=== PATIENT | male | born 1995 | race Two or more races ===

== ENCOUNTER 2025-02-19 21:01 | Emergency (ER) | payer MEDICAID, SELFPAY ==
[2025-02-19 21:08] VITALS: BP 132/81; PULSE 96; RESP 18; TEMP 36.7; O2SAT 97
--- NOTE | 2025-02-19 21:10 | PC.NURSE ---
NOT A STROKE ALERT PER DR. MENDES.
--- NOTE | 2025-02-19 21:11 | XR_ITS ---
Examination: CT brain head without contrast. 2-D sagittal coronal reconstructions Date and time of exam:February 19, 2025, 2122 hrs. Indications: Altered mental status numbness in the face and arms beginning 15 minutes ago CTDI: vol (mGy):40.5 DLP: (mGycm):987 Technique: Multiple CT axial sections of the brain have been obtained, 5 mm slice thickness. Contrast has not been administered. 2-D sagittal, coronal reconstructions have been obtained Low dose protocols were performed. One or more of the following dose reduction techniques were used; automated exposure control, adjustment of the mA and/or KV according to patient size, use of iterative reconstruction technique. Findings: No significant ventricular enlargement. Intra-axial or extra-axial hemorrhage density is not seen. Cerebellar tonsils appear to project 5 mm below the foramen magnum No mass effect or midline shift Cerebellar tonsils project Fourth ventricle is midline. Cranial vault intact. Impression: Negative for acute hemorrhage, or midline shift. Suspicious for Arnold-Chiari malformation type I Recommend elective brain MRI follow-up pre and postcontrast
--- NOTE | 2025-02-19 21:13 | PD.EDADULT ---
ED General RME/HPI General Chief complaint: General Adult/Misc Complain Stated complaint: NUMBNESS TO FACES, [place]. ARMS, AND STOMACH X15 MIN Time Seen by Provider: 02/19/25 21:10 Arrival date/time: 02/19/25 21:01 RME / HPI RME / HPI narrative: DR. MENDES MAIN ED EVALUATION: 29 y/o male presents to ED c/o of numbness radiating from the abdomen, left side chest, and LUE s/p large consumption of shrimp x 30 minutes. Denies nausea. Patient states this happened several years ago after consumption of shrimp and was advised to avoid shrimp. Denies any recreational drug use, but admits to alcohol use. No other concerns or complaints expressed at this time. Related Data Allergies Allergy/AdvReac Type Severity Reaction Status Date / Time shrimp Allergy Verified 02/19/25 21:14 Review of Systems Review of Systems Systems Reviewed: All systems reviewed, normal except as documented Past Medical History Social History SMOKING STATUS: Never smoker ALCOHOL: Current ED Exam Narrative Physical exam: Generally patient is alert oriented and in no obvious distress, eyes pupils equal round reactive to light, neck showed no bruits, heart regular rate and rhythm, lungs clear to auscultation equal bilaterally, abdomen soft bowel sounds present send nontender, neurologic exam no facial asymmetry. No focal motor or sensory deficits. No ataxia. Course Quality Measures none Orders Category Date Time Status CT head/brain wo con Stat Exams 02/19/25 21:11 Completed Alcohol, Blood Medical Stat Lab 02/19/25 21:40 Completed CBC Stat Lab 02/19/25 21:40 Completed CMP [Comprehensive Metabolic Panel] Stat Lab 02/19/25 21:40 Completed Drug Screen,Urine Stat Lab 02/19/25 21:55 Completed Vital Signs Vital signs: Vital Signs Temperature 98.1 F 02/19/25 21:08 Pulse Rate 96 02/19/25 21:08 Respiratory Rate 18 02/19/25 21:08 Blood Pressure 132/81 H 02/19/25 21:08 Pulse Oximetry (%) 97 02/19/25 21:08 Oxygen Delivery Method Room Air 02/19/25 21:08 Discharge Plan Plan Patient Disposition: HOME (Self Care) Prescriptions/Referrals Referrals: No Primary/Family,Physician [Primary Care Provider] - In 1 week Problem List Clinical Impression: Paresthesia Patient/Caregiver Discharge Instructions Education Materials: ED Paraesthesias Additional Instructions: Possibly avoid shrimp in the future. Print Language: Venezuelan Stand Alone Forms: Rebecca Award Info., Patient Portal Info Letter MDM Narrative [facility] hospital course: Scribe Attestation: I, Ilene Yo, am scribing for and in the presence of Dr. Mendes. Provider Notation: Although this document has been carefully reviewed, there may still be some phonetic and other typographical errors. These errors are purely grammatical due to imperfections in the software program and should not be construed in any way to compromise the substance of the patient's medical care during this visit. The patient had this feeling of numbness and paresthesias last time he ate shrimp. He ate shrimp today and a short time later felt numb. He denies any current blurring of vision. No current vomiting. I interpreted all labs. There is no significant abnormality. Head CT is negative. Patient denies headache. Patient stable for discharge. Clinical Information Provided by patient Medical Records Reviewed [facility] No prior ED records available for review. Meds/Rx Considered, not Ordered None Labs/Rad/Tests considered, not Ordered None Chronic Illness/Social Conditions which may negatively complicate care or outcome(s)-explain: None or not applicable EKG EKG not done Lab Interpretation Labs: interpreted by me and see narrative above Imaging Imaging interpretation: interpreted by me and see narrative above Radiology reports / interpretation(s): RADIOLOGY Head/Brain CT: Findings: No significant ventricular enlargement. Intra-axial or extra-axial hemorrhage density is not seen. Cerebellar tonsils appear to project 5 mm below the foramen magnum No mass effect or midline shift Cerebellar tonsils project Fourth ventricle is midline. Cranial vault intact. Impression: Negative for acute hemorrhage, or midline shift. Suspicious for Arnold-Chiari malformation type I Recommend elective brain MRI follow-up pre and postcontrast Medication Administration(s) See above if any. Diagnosis Differential diagnosis: TIA vs CVA vs Food Allergy vs Gastritis vs Viral Illness Dispositon Disposition: Discharge Home
[2025-02-19 21:15] VITALS: BMI 28.0
[2025-02-19 21:50] LABS: Basophils # (Auto) 0.0 Thou/mm3 (0.0-0.2); Basophils % (Auto) 0 % (0-2.5); Eosinophils # (Auto) 0.3 Thou/mm3 (0.0-0.5); Eosinophils % (Auto) 4 % (0-10); Hematocrit 41.9 % (41.0-53.0); Hemoglobin 14.8 g/dL (13.5-16.0); Immature Granulocytes Auto 0.05 Thou/mm3 (0.00-0.00); Lymphocytes # (Auto) 3.5 Thou/mm3 (1.0-4.8); Lymphocytes % (Auto) 43 % (10-50); Mean Corpuscular HGB Conc 35.3 g/dl (31.0-37.0); Mean Corpuscular Hemoglobin 31.2 pg (25.0-35.0); Mean Corpuscular Volume 88 fL (80-100); Monocytes # (Auto) 0.8 Thou/mm3 (0.0-0.8); Monocytes % (Auto) 10 % (0-12); Neutrophils # (Auto) 3.3 Thou/mm3 (1.8-7.7); Neutrophils % (Auto) 42 % (37-80); Nucleated Red Blood Cell # 0.00 Thou/mm3 (0.00-0.00); Nucleated Red Blood Cell % 0 /100 WBC (0); Platelet Count 359 Thou/mm3 (140-440); RDW Standard Deviation 39.8 fL (35.1-43.9); Red Blood Count 4.74 Miln/mm3 (4.50-5.90); White Blood Count 8.0 Thou/mm3 (3.8-10.6)
[2025-02-19 22:09] LABS: Amphetamine/Methamp Scrn,U Negative (Negative); Barbiturate Screen,Urine Negative (Negative); Benzodiazepines Screen,Urine Negative (Negative); Benzoylecgonine Screen, Ur Negative (Negative); Fentanyl Screen,Urine Negative (Negative); Opiate Screen,Urine Negative (Negative); THC Screen,Urine Negative (Negative)
[2025-02-19 22:10] LABS: Alanine Aminotransferase 25 U/L (10-49); Albumin, Serum 4.5 gm/dL (3.5-5.0); Albumin/Globulin Ratio 1.5 (1.2-2.2); Alcohol, Blood Medical < 3.0 mg/dL (0-10.0); Alkaline Phosphatase 106 U/L (46-116); Anion Gap 10 (7-16); Aspartate Amino Transferase 21 U/L (0-34); BUN/Creatinine Ratio 17 Ratio (12-20); Bilirubin,Total 0.3 mg/dL (0.3-1.2); Blood Urea Nitrogen 15 mg/dL (9-23); Calcium 9.6 mg/dL (8.3-10.6); Calcium (Corrected) 9.6 mg/dL (8.5-10.1); Carbon Dioxide 27.4 mMol/L (20.0-31.0); Chloride 106 mMol/L (98-107); Creatinine (Component) 0.9 mg/dL (0.6-1.3); Estimated Creatinine Clearance 131.8 mL/min (>60); Globulin 3.0 gm/dL (2.3-3.5); Glucose 103 mg/dL (74-106); Osmolality,Calculated 285 (275-295); Potassium 3.8 mMol/L (3.4-5.1); Sodium 143 mMol/L (136-145); Total Protein 7.5 gm/dL (5.7-8.2); eGFR > 60 See Note
[2025-02-19 22:31] VITALS: BP 131/84; PULSE 66; RESP 19; TEMP 36.8; O2SAT 100
== END 2025-02-19 23:01 | disposition home or self-care (01) ==
PROVIDERS: Emergency Provider Emergency Medicine
DX: R20.2 Paresthesia of skin (principal); R20.0 Anesthesia of skin; R41.82 Altered mental status, unspecified
CPT/HCPCS: 36415; 70450; 80053; 80307; 80320; 85025; 99284; G0480